=== PATIENT | male | born 1965 | race Two or more races ===

== ENCOUNTER 2017-09-05 19:37 | Emergency (ER) | payer SELFPAY ==
[~2017-09-05] VITALS: Ht 167.6 cm; Wt 74.8 kg
[2017-09-05 22:45] VITALS: BP 145/102
[2017-09-05] MEDS ORDERED: TETANUS-DIPTH-ACEL PERTUSSIS 0.5ML SYRG IM ONE (23:15)
== END 2017-09-06 00:32 | disposition home or self-care (01) ==
LOC: ER 19:49
DX: S91.011A Laceration without foreign body, right ankle, initial encounter (principal); W19.XXXA Unspecified fall, initial encounter; Y93.89 Activity, other specified; Y99.8 Other external cause status; Y92.89 Other specified places as the place of occurrence of the external cause
CPT/HCPCS: 12001; 73610; 90471; 90715